=== PATIENT | male | born 1970 | race Caucasian/White ===

== ENCOUNTER 2025-01-31 17:51 | Emergency (ER) | payer SELFPAY ==
[~2025-01-31] VITALS: Ht 172.7 cm; Wt 77.0 kg
[2025-01-31 17:55] VITALS: O2SAT 99
[2025-01-31] MEDS: ACETAMINOPHEN 325MG TABLET PO ONE (18:20)
[2025-01-31] MEDS: IBUPROFEN 400MG TABLET PO ONE (18:20)
[2025-01-31] MEDS: TETANUS AND DIPHTHERIA TOX/PF 0.5ML SYR (ADULT) IM ONE (19:08)
[2025-01-31 21:30] VITALS: BP 127/75; PULSE 71; RESP 16; TEMP 36.4; O2SAT 97
== END 2025-01-31 21:40 | disposition home or self-care (01) ==
LOC: ER 17:51
DX: S40.211A Abrasion of right shoulder, initial encounter (principal); S09.90XA Unspecified injury of head, initial encounter; W11.XXXA Fall on and from ladder, initial encounter; Y93.89 Activity, other specified; Y92.89 Other specified places as the place of occurrence of the external cause; Y99.8 Other external cause status
CPT/HCPCS: 71045; 73030; 70450; 76705; 90714; 90471; 99291; Z7610; A6449